=== PATIENT | male | born 1960 | race Asian ===

== ENCOUNTER → 2016-09-19 | Outpatient (CLI) | payer BC, OTHER ==
--- NOTE | 2016-09-19 15:12 | DX ---
Left ankle 3 views. History: Trauma. Pain. Findings: Mild soft tissue swelling is seen over the lateral malleolus. No evidence for fracture or d islocation. No other significant osseous or soft tissue abnormality. Impression: Mild soft tissue swelling over the lateral malleolus indicating the soft tissue injury. N o evidence for fracture.
== END ==
LOC: BMCIMAGING 14:21
PROVIDERS: ATTEND Emergency Medicine
DX: M25.572 Pain in left ankle and joints of left foot (principal); M79.89 Other specified soft tissue disorders; X50.9XXA Other and unspecified overexertion or strenuous movements or postures, initial encounter